=== PATIENT | male | born 1955 | race Caucasian/White ===

== ENCOUNTER 2017-01-19 17:01 | Emergency (ER) | payer SELFPAY ==
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
[2017-01-19 20:29] LABS: Hematocrit 41 % (42-52); Hemoglobin 13.5 g/dl (14.0-18.0); Mean Corpuscular HGB Conc 33 g/dl (31-36); Mean Corpuscular Hemoglobin 29 pg (27-31); Mean Corpuscular Volume 87 fL (80-94); Mean Platelet Volume 8 um3 (7.4-10.4); Red Blood Count 4.71 10^6/ul (4.0-5.4); Red Cell Distribution Width 14 % (10.5-15); White Blood Count 3.7 10^3/ul (3.5-10.8)
[2017-01-19 20:34] LABS: Add Diff/Slide Review? Manual Diff Added; Comments Flag Yes
[2017-01-19 21:02] LABS: BUN/Creatinine Ratio 20.6 (8-20); Calcium 8.8 mg/dL (8.6-10.3); EGFR African American 45.5 (>60); EGFR Non-African American 35.4 (>60); Potassium 4.2 mmol/L (3.5-5.0)
[2017-01-19 21:08] LABS: Immature Granulocytes 1 % (0-9); Neutrophil % 53 % (38-83); Reactive Lymph % 4 % (0-6)
[2017-01-19 21:09] LABS: Add Path Review? YES; RBC Morphology Normal (Normal)
[2017-01-19 21:38] VITALS: BP 129/83
== END 2017-01-19 21:37 | disposition home or self-care (01) ==
LOC: ED 17:01
DX: L03.90 Cellulitis, unspecified (principal); F17.210 Nicotine dependence, cigarettes, uncomplicated
CPT/HCPCS: 36415; 80048; 85025; 85060; 99282